=== PATIENT | female | born 1960 | race American Indian/Alaskan Native ===

== ENCOUNTER 2017-10-28 13:25 | Emergency (ER) | payer SELFPAY ==
[2017-10-28 13:32] VITALS: BP 167/104
[2017-10-28 14:21] LABS: Bilirubin,Urine NEG (Negative); Blood,Urine NEG (Negative); Color,Urine Straw (Yellow); Protein,Urine <15 mg/dL mg/dL (Negative); RBC,Urine < 1.0 /HPF (0.0-6.0); Urobilinogen,Urine < 2.0 mg/dL (<2.0); WBC,Urine < 1.0 /HPF (0.0-6.0)
--- NOTE | 2017-10-28 16:33 | Emergency Department Report ---
Sabrina Doc - Documentation Documentation: 57-year-old female presents to the Hospital complaining of right eye pain. Patient went over 6. She likely her right eyelid and lower portion of her inferior orbit on object. Patient complains of pain only with her eyes closed and she's pressing. Otherwise extraocular movements intact without photophobia. Patient presents with colored prescription contact lenses in her eyes. Patient has multiple complaints including dysuria, vaginal irritation and urinating a lot Patient also stating her chronic burning leg pain is no longer relieved with her gabapentin Patient has history of high blood pressure but states "I am not claiming that" and is not currently taking any blood pressure medication. She also does not want blood pressure medication prescribed Patient informed that her blood pressure is high meds and follow up are advised. Urine has been collected and no signs of infection at this time Focused physical exam Contusion/superficial abrasion noted to right eyelid and infraorbital area. No gross orbital abnormality. Extraocular movements intact and pupils equal reactive to light Patient informed that her blood pressure is high meds and follow up are advised. Urine has been collected and no signs of infection at this time Patient would need further eye examination including staining to rule out abrasion Tetanus is up to date
[2017-10-28] MEDS ORDERED: FUL-GLO OP ONE (16:35)
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
== END 2017-10-28 18:10 | disposition home or self-care (01) ==
LOC: ED 13:25
DX: S00.211A Abrasion of right eyelid and periocular area, initial encounter (principal); N39.0 Urinary tract infection, site not specified; I10 Essential (primary) hypertension; F17.200 Nicotine dependence, unspecified, uncomplicated; W22.01XA Walked into wall, initial encounter; Y93.89 Activity, other specified; Y92.89 Other specified places as the place of occurrence of the external cause; Y99.8 Other external cause status
CPT/HCPCS: 81001; 87086; 99283